=== PATIENT | female | born 1995 | race Caucasian/White ===

== ENCOUNTER 2017-04-04 13:43 | Emergency (ER) | payer OTHER ==
[2017-04-04 13:54] VITALS: BP 134/80; PULSE 75; TEMP 98.4; BMI 20.9
[2017-04-04 14:33] LABS: URINE APPEARANCE CLEAR; URINE BILIRUBIN NEGATIVE (NEGATIVE); URINE COLOR YELLOW; URINE GLUCOSE (UA) NEGATIVE (NEGATIVE); URINE KETONE TRACE (NEGATIVE); URINE NITRITE NEGATIVE (NEGATIVE); URINE PROTEIN NEGATIVE (NEGATIVE); URINE UROBILINOGEN 2.0 E.U/dl E.U./dl (0.2-1.0)
[2017-04-04 14:34] LABS: URINE BLOOD 2+ (NEGATIVE); URINE LEUK ESTERASE 2+ (NEGATIVE)
[2017-04-04 14:36] LABS: URINE MUCUS RARE; URINE RBC 23 /hpf (0-3); URINE WBC 150 /hpf (3-5)
--- NOTE | 2017-04-04 14:37 | PDOC ---
History of Present Illness - General Chief Complaint: Urinary Problem Stated Complaint: UTI Time Seen by Provider: 04/04/17 13:58 History Source: Patient Exam Limitations: No Limitations - History of Present Illness Travel History: No Initial Comments: 04/04/17 14:28 21 yr female with c/o urinary urgency, frequency and burning for 1 day. Pt had same symptoms one month ago dx with UTI took 3 days of anitbiotics states she felt better but symptoms never went away completely. Pt denies vaginal discharge no abnormal bleeding. no medical history. Past History - Past Medical History Allergies/Adverse Reactions: Allergies Allergy/AdvReac Type Severity Reaction Status Date / Time No Known Allergies Allergy Verified 04/04/17 13:53 Home Medications: Ambulatory Orders Cephalexin Monohydrate [Keflex -] 500 mg PO BID #14 capsule 04/04/17 Phenazopyridine HCl [Pyridium] 200 mg PO TID PRN #9 tablet 04/04/17 Other medical history: NONE - Surgical History Appendectomy: Yes - Immunization History Td Vaccination: Yes TDAP Vaccination: Yes Immunization Up to Date: Yes - Psycho/Social/Smoking Cessation Hx Anxiety: No Suicidal Ideation: No Smoking Status: No Smoking History: Never smoked Years of Tobacco Use: 0 Number of Cigarettes Smoked Daily: 0 Hx Alcohol Use: Yes (SOCIAL) Drug/Substance Use Hx: No Substance Use Type: None Abd/GI Specific PMHX - Complaint Specific PMHX Colitis: No Diverticulitis: No Gall Bladder Disease: No GERD: No Hepatitis: No Irritable Bowel Synd (IBS): No Pancreatitis: No GI Ulcer Disease: No *Physical Exam - Vital Signs Last Vital Signs Temp Pulse Resp BP Pulse Ox 98.4 F 75 20 134/80 100 04/04/17 13:49 04/04/17 13:49 04/04/17 13:49 04/04/17 13:49 04/04/17 13:49 - Physical Exam General Appearance: Yes: Nourished, Appropriately Dressed HEENT: positive: EOMI, CLEVE, TMs Normal Neck: positive: Supple Respiratory/Chest: positive: Lungs Clear, Normal Breath Sounds Cardiovascular: positive: Regular Rhythm, Regular Rate Gastrointestinal/Abdominal: positive: Normal Bowel Sounds, Soft Musculoskeletal: positive: Normal Inspection Extremity: positive: Normal Capillary Refill, Normal Inspection, Normal Range of Motion Integumentary: positive: Normal Color, Dry, Warm Neurologic: positive: Fully Oriented, Alert, Normal Mood/Affect, Normal Response , Motor Strength 5/5 Medical Decision Making - Medical Decision Making 04/04/17 15:01 cc: urinary urgency frequency for one day history of UTI pt states she was screened by her laboratory scientist last month for STDs and was negative pt is sexually active 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 states she often holds in her urine afebrile vitals stable *DC/Admit/Observation/Transfer Diagnosis at time of Disposition: Urinary tract infection Qualifiers: Urinary tract infection type: acute cystitis Hematuria presence: with hematuria Qualified Code(s): N30.01 - Acute cystitis with hematuria - Discharge Dispostion Disposition: HOME Condition at time of disposition: Good - Prescriptions Prescriptions: Cephalexin Monohydrate [Keflex -] 500 mg PO BID #14 capsule Phenazopyridine HCl [Pyridium] 200 mg PO TID PRN #9 tablet PRN Reason: urinary pain - Referrals Referrals: Jayson Dugan MD [Primary Care Provider] - - Patient Instructions Additional Instructions: drink pleanty of water to stay hydrated take the antibioitcs for 7 days always urinate before and after sexual intercourse follow with the urologist Dr. Marshall for follow up if symptoms continue or do not improve
[2017-04-04] MEDS ORDERED: PHENAZOPYRIDINE HCL 100 MG TABLET (FP) ONE (15:14)
[2017-04-04] MEDS ORDERED: PHENAZOPYRIDINE HCL 100 MG TABLET (FP) PO ONE (15:14)
[2017-04-04] MEDS ORDERED: IBUPROFEN 600 MG TABLET (FP) PO ONE ×2 (15:14)
== END 2017-04-04 15:17 | disposition home or self-care (01) ==
LOC: JERFT 13:43
DX: N30.01 Acute cystitis with hematuria (principal); Z87.440 Personal history of urinary (tract) infections
CPT/HCPCS: 36415; 81003; 81015; 84703; 87086; 87491; 87591; 99281-25